=== PATIENT | male | born 1955 | race Hispanic/Latino ===

== ENCOUNTER 2023-08-13 12:02 | Emergency (ER) | payer OTHER, MEDICAID ==
[2023-08-13] MEDS ORDERED: Acetaminophen 325 MG TAB ONE (12:57)
[2023-08-13 13:01] LABS: #Basophils 0.2 thou/uL (0.0-0.2); #Eosinphils 0.5 thou/uL (0.0-0.7); #Lymphocytes 2.1 thou/uL (1.20-3.40); #Monocytes 0.6 thou/uL (0.11-0.59); #Neutrophils 3.2 thou/uL (1.40-6.50); %Basophils 2.5 % (0.0-1.0); %Eosinophils 7.3 % (0.0-10.0); %Lymphocytes 32.1 % (21.0-51.0); %Monocytes 9.2 % (0.0-10.0); %Neutrophils 48.9 % (42.0-75.0); Hematocrit 44.4 % (42.0-52.0); Hemoglobin 13.4 g/dL (14.0-18.0); Mean Corpuscular HGB CONC 30.2 g/dL (32.0-36.0); Mean Corpuscular Hemoglobin 29.2 pg (27.0-31.0); Mean Corpuscular Volume 96.9 fl (78.0-98.0); Mean Platelet Volume 7.4 fL (7.4-10.4); Platelet Count 223 10x3/uL (130-400); RBC Distribution Width 12.6 % (11.5-14.5); Red Blood Cell (RBC) Count 4.58 mill/uL (4.70-6.10); White Blood Cell (WBC) Count 6.6 10x3/uL (4.8-10.8)
[2023-08-13 13:15] LABS: ALT (SGPT) 13 U/L (8-55); AST (SGOT) 13 U/L (5-34); Albumin 3.5 g/dL (3.4-4.8); Alkaline Phosphatase 59 U/L (40-110); Anion Gap 16 mmol/L (10-20); BUN (Urea Nitrogen) 22 mg/dL (8.4-25.7); Bilirubin, Total 0.6 mg/dL (0.2-1.2); Calc. Creatinine Clearance 0 mL/min (70-130); Carbon Dioxide 25 mmol/L (23-31); Chloride 104 mmol/L (98-107); Estimated GFR 81; Globulin 3.1 g/dL (2.4-3.5); Glucose 102 mg/dL (80-115); Potassium 4.4 mmol/L (3.5-5.1); Protein, Total 6.6 g/dL (5.8-8.1); Sodium 141 mmol/L (136-145)
[2023-08-13 13:16] LABS: Troponin I Less than 0.010 ng/mL (< 0.028)
== END 2023-08-13 18:41 ==
LOC: MADERS 12:02
DX: K52.9 Noninfective gastroenteritis and colitis, unspecified (principal); M19.012 Primary osteoarthritis, left shoulder
CPT/HCPCS: 36415; 70450; 71045; 72125; 74177; 80053; 84484; 85025; 93005; 94760